=== PATIENT | female | born 1930 | race Asian ===

== ENCOUNTER 2017-10-14 11:53 | Outpatient (CLI) | payer MEDICARE, OTHER ==
--- NOTE | 2017-10-14 17:46 | CT Report ---
CT BRAIN WITHOUT CONTRAST: 10/14/2017 CLINICAL INDICATION: Facial pain. COMPARISON: 10/15/2015 TECHNIQUE: Axial CT images of the brain were obtained without intravenous contrast. In accordance with CT protocol optimization, one or more of the following dose reduction techniques were utilized for this exam: Automated exposure control, adjustment of mA and/or KV based on patient size, or use of iterative reconstructive technique. FINDINGS: Atrophy appears stable. There is no evidence of interval hemorrhage, mass effect, or midline shift. The basilar cisterns remain patent. The visualized orbital contents and paranasal sinuses are unremarkable. IMPRESSION: STABLE ATROPHY. NO EVIDENCE OF HEMORRHAGE OR MASS EFFECT. NO SIGNIFICANT INTERVAL CHANGE. TD: 10/14/2017 17:45
== END 2017-10-14 11:54 | disposition home or self-care (01) ==
LOC: DI 11:53
PROVIDERS: ATTEND Internal Medicine
DX: G50.1 Atypical facial pain (principal)
CPT/HCPCS: 70450